=== PATIENT | female | born 1970 | race African-American/Black ===

== ENCOUNTER 2018-09-04 15:15 | Emergency (ER) | payer OTHER ==
[2018-09-04 15:32] VITALS: BP 147/93; PULSE 109; TEMP 99.2; BMI 27.4
--- NOTE | 2018-09-04 15:33 | PDOC ---
Rapid Medical Evaluation Chief Complaint: Pain Time Seen by Provider: 09/04/18 15:30 Medical Evaluation: 09/04/18 15:30 Pt c/o: upper left leg pain x 2 weeks, no swelling, sob, no travel, no injury, no back pain, no bruising Pt on brief exam: ambulatory, from, tenderness to left hamstring, no masses Pt ordered for: none pt to proceed to the ED Discharge Disposition - Diagnosis Left leg pain - Referrals - Patient Instructions - Post Discharge Activity
--- NOTE | 2018-09-04 16:10 | PDOC ---
History of Present Illness - General Chief Complaint: Pain Stated Complaint: LT LEG PAIN Time Seen by Provider: 09/04/18 15:30 History Source: Patient Exam Limitations: No Limitations - History of Present Illness Initial Comments: 09/04/18 16:05 Patient is here with complaints of persistent pain to left hamstring. 2 weeks ago was at the gym on the treadmill and felt an exquisite/acute pain to midpoint belly of that muscle group on the left leg. has been using hot soaks and massage but has not improved. Denies numbness or tingling to foot but is concerned he has ibuprofen resolved any of her pain Occurred: reports: last week Severity: reports: mild, moderate Pain Location: reports: lower extremity Loss of Consciousness: no loss of consciousness Associated Symptoms (Fall): denies symptoms (left) Past History - Travel Traveled outside of the country in the last 30 days: No Close contact w/someone who was outside of country & ill: No - Past Medical History Allergies/Adverse Reactions: Allergies Allergy/AdvReac Type Severity Reaction Status Date / Time No Known Allergies Allergy Verified 09/04/18 15:32 Home Medications: Ambulatory Orders Cyclobenzaprine HCl 10 mg PO Q8H PRN #14 tablet 09/04/18 Naproxen [Naprosyn -] 500 mg PO BID #30 tablet 09/04/18 COPD: No - Suicide/Smoking/Psychosocial Hx Smoking History: Never smoked Information on smoking cessation initiated: No Hx Alcohol Use: No Drug/Substance Use Hx: No Review of Systems - Review of Systems Able to Perform ROS?: Yes Is the patient limited [place] proficient: Yes Constitutional: Yes: Symptoms Reported, See HPI, Malaise. No: Fever HEENTM: No: Symptoms Reported Respiratory: Yes: Symptoms reported Musculoskeletal: Yes: Symptoms Reported, See HPI, Muscle Pain, Muscle Weakness Integumentary: Yes: See HPI. No: Symptoms Reported, Bruising All Other Systems: Reviewed and Negative *Physical Exam - Vital Signs Last Vital Signs Temp Pulse Resp BP Pulse Ox 99.2 F 109 H 17 147/93 98 09/04/18 15:30 09/04/18 15:30 09/04/18 15:30 09/04/18 15:30 09/04/18 15:30 - Physical Exam General Appearance: Yes: Appropriately Dressed, Apparent Distress, Mild Distress HEENT: positive: SARA, Normal ENT Inspection, TMs Normal, Pharynx Normal Neck: positive: Supple. negative: Tender Respiratory/Chest: positive: Lungs Clear Musculoskeletal: positive: Normal Inspection. negative: Vertebral Tenderness Extremity: positive: Normal Range of Motion, Tender (no deformity, no cording, no defect noted in hamstring bellies. Able to contract without significant tenderness. 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 intact, Fully Oriented, Alert, Normal Mood/ Affect, Normal Response, Motor Strength 5/5 Moderate Sedation - Procedure Monitoring Vital Signs: Procedure Monitoring Vital Signs Temperature 99.2 F 09/04/18 15:30 Pulse Rate 109 H 09/04/18 15:30 Respiratory Rate 17 09/04/18 15:30 Blood Pressure 147/93 09/04/18 15:30 O2 Sat by Pulse Oximetry (%) 98 09/04/18 15:30 *DC/Admit/Observation/Transfer Diagnosis at time of Disposition: Left leg pain - Discharge Dispostion Disposition: HOME Condition at time of disposition: Stable Decision to Admit order: No - Referrals - Patient Instructions Printed Discharge Instructions: DI for Hamstring Strain Additional Instructions: Rest, no heavy lifting or exercise until pain is resolved Hot soaks to neck and low back as often as possible/hot showers or Jacuzzis No massage or therapy until spasm is gone Continue Naprosyn 500 mg tablet, 1 tablet every 8 hours for the next 3 days then as needed for pain and swelling Cyclobenzaprine 1-10mg every 8 hours as needed for spasm If not significant improvement within 24 hours with medication and rest regime, followup with private physician for change in medications and /or therapy. - Post Discharge Activity Forms/Work/School Notes: Back to Work
== END 2018-09-04 16:26 | disposition home or self-care (01) ==
LOC: JERFT 15:15
DX: M79.605 Pain in left leg (principal)
CPT/HCPCS: 99281-25

== ENCOUNTER 2022-11-02 21:08 | Emergency (ER) | payer OTHER ==
[2022-11-02 21:16] VITALS: BP 162/90; PULSE 79; RESP 18; TEMP 98.2; BMI 32.8
== END 2022-11-02 22:47 | disposition home or self-care (01) ==
LOC: JERFT 21:08
DX: K13.0 Diseases of lips (principal)
CPT/HCPCS: 99282-25